=== PATIENT | female | born 1955 | race African-American/Black ===

== ENCOUNTER 2022-08-05 20:41 | Emergency (ER) | payer SELFPAY ==
[~2022-08-05] VITALS: Ht 170.2 cm; Wt 93.0 kg
[2022-08-05 20:50] VITALS: BP 130/60
[2022-08-05 21:10] LABS: Basophils # (auto) 0 10 ^3/uL (0-0.2); Eosinophils # (auto) 0.1 10 ^3/uL (0-0.8); Eosinophils % (auto) 3.1 % (0.0-7.0); Hemoglobin 10.6 g/dL (12.2-16.2); Lymphocytes # (auto) 0.7 10 ^3/uL (0.4-5.4); Mean Corpuscular Hemoglobin 29.2 pg (28.0-32.0); Mean Corpuscular Volume 88.3 fL (80.0-100.0); Monocytes # (auto) 0.5 10 ^3/uL (0-1.3); Monocytes % (auto) 11.9 % (0.0-12.0); Neutrophils # (auto) 2.5 10 ^3/uL (1.6-8.6); Nucleated Red Blood Cells % 0.1 %; Red Blood Cells 3.62 10^6/uL (4.0-5.20); Red Cell Distribution Width 14.5 % (11.8-14.3); White Blood Cell 3.9 10^3/uL (4.4-10.8)
[2022-08-05 21:33] LABS: Albumin 3.4 g/dL (3.4-5.0)
[2022-08-05 21:39] LABS: Bilirubin, Total 0.3 mg/dL (0.2-1.0); INR 1.01 (0.9-1.15); Magnesium 1.9 mg/dL (1.6-2.6); Partial Thromboplastin Time 27.6 sec (24.6-33.4); Total Protein 6.8 g/dL (6.4-8.2)
== END 2022-08-06 07:41 | disposition home or self-care (01) ==
LOC: EDBD 20:41 → ER 20:47
DX: R07.89 Other chest pain (principal); Z59.00 Homelessness unspecified
CPT/HCPCS: 36415; 71045; 80053; 83735; 83880; 84484; 85025; 85610; 85730; 93005